=== PATIENT | female | born 1985 | race American Indian/Alaskan Native ===

== ENCOUNTER 2016-04-18 05:17 | Emergency (ER) | payer MEDICAID, OTHER ==
[2016-04-18 05:25] VITALS: BP 128/85
[2016-04-18 05:50] LABS: Basophils % (Auto) 0.3 % (0.0-1.8); Eosinophils % (Auto) 1.9 % (0.0-4.3); Hematocrit 34.7 % (30.3-42.9); Hemoglobin 11.4 gm/dl (10.1-14.3); Mean Corpuscular HGB Conc 33 % (30-34); Mean Corpuscular Hemoglobin 27 pg (28-32); Mean Corpuscular Volume 82 fl (79-97); Platelet Count 277 K/mm3 (140-440); Red Blood Count 4.24 M/mm3 (3.65-5.03); Red Cell Distribution Width 15.1 % (13.2-15.2); White Blood Count 6.6 K/mm3 (4.5-11.0)
[2016-04-18 06:05] LABS: Bacteria,Urine 1+ /HPF (Negative); Bilirubin,Urine NEG (Negative); Blood,Urine NEG (Negative); Ketones,Urine NEG (Negative); Leukocyte Esterase,Urine SM (Negative); Mucus,Urine FEW /HPF; Nitrite,Urine NEG (Negative); Protein,Urine <15 mg/dL mg/dL (Negative); Urobilinogen,Urine < 2.0 mg/dL (<2.0)
[2016-04-18 06:15] LABS: Alanine Aminotransferase 9 units/L (7-56); Albumin 4.2 g/dL (3.9-5); Albumin/Globulin Ratio 1.3 %; Alkaline Phosphatase 54 units/L (35-129); Bilirubin,Total 0.2 mg/dL (0.1-1.2); Blood Urea Nitrogen 12 mg/dL (7-17); Calcium 9.1 mg/dL (8.4-10.2); Carbon Dioxide 27 mmol/L (22-30); Chloride 98.3 mmol/L (98-107); Glucose 97 mg/dL (65-100); Lipase 34 units/L (13-60); Potassium 4.4 mmol/L (3.6-5.0); Sodium 137 mmol/L (137-145); Total Protein 7.5 g/dL (6.3-8.2)
[2016-04-18 06:27] LABS: Anion Gap 16 mmol/L
--- NOTE | 2016-04-19 05:49 | ED Elopement Review ---
ED Pt Elopement review - Results review Lab results: Laboratory Tests 04/18/16 04/18/16 04/18/16 05:42 05:42 05:45 WBC 6.6 RBC 4.24 Hgb 11.4 Hct 34.7 MCV 82 MCH 27 L MCHC 33 RDW 15.1 Plt Count 277 Lymph % (Auto) 53.9 H Piatt % (Auto) 8.6 H Eos % (Auto) 1.9 Baso % (Auto) 0.3 Lymph # 3.6 Piatt # 0.6 Eos # 0.1 Baso # 0.0 Seg Neutrophils % 35.3 L Seg Neutrophils # 2.3 Sodium 137 Potassium 4.4 Chloride 98.3 Carbon Dioxide 27 Anion Gap 16 BUN 12 Creatinine 0.6 L Estimated GFR > 60 BUN/Creatinine Ratio 20.00 Glucose 97 Calcium 9.1 Total Bilirubin 0.2 AST 17 ALT 9 Alkaline Phosphatase 54 Total Protein 7.5 Albumin 4.2 Albumin/Globulin Ratio 1.3 Lipase 34 Urine Color Yellow Urine Turbidity Slightly-cloudy Urine pH 5.0 Ur Specific Olar 1.019 Urine Protein <15 mg/dl Urine Glucose (UA) Neg Urine Ketones Neg Urine Blood Neg Urine Nitrite Neg Urine Bilirubin Neg Urine Urobilinogen < 2.0 Ur Leukocyte Esterase Sm Urine WBC (Auto) 16.0 H Urine RBC (Auto) 4.0 U Epithel Cells (Auto) 8.0 Urine Bacteria (Auto) 1+ Urine Mucus Few Urine HCG, Qual Negative - Call Back decision Pt Call Back Decision: No action required
== END 2016-04-18 05:43 | disposition left against medical advice (07) ==
LOC: ED 05:17
DX: R10.9 Unspecified abdominal pain (principal); E11.9 Type 2 diabetes mellitus without complications; Z72.0 Tobacco use; Z53.21 Procedure and treatment not carried out due to patient leaving prior to being seen by health care provider
CPT/HCPCS: 36415; 80053; 81001; 81025; 83690; 85025

== ENCOUNTER 2017-05-04 17:14 | Emergency (ER) | payer SELFPAY ==
[2017-05-04 17:39] VITALS: BP 108/50
[2017-05-04 18:12] LABS: Basophils % (Auto) 0.5 % (0.0-1.8); Eosinophils # (Auto) 0.1 K/mm3 (0.0-0.4); Hematocrit 35.7 % (30.3-42.9); Hemoglobin 12.1 gm/dl (10.1-14.3); Lymphocytes # (Auto) 2.8 K/mm3 (1.2-5.4); Lymphocytes % (Auto) 38.3 % (13.4-35.0); Mean Corpuscular HGB Conc 34 % (30-34); Mean Corpuscular Hemoglobin 28 pg (28-32); Mean Corpuscular Volume 83 fl (79-97); Monocytes # (Auto) 0.5 K/mm3 (0.0-0.8); Monocytes % (Auto) 7.3 % (0.0-7.3); Platelet Count 285 K/mm3 (140-440); Red Cell Distribution Width 15.8 % (13.2-15.2)
[2017-05-04 18:35] LABS: Alanine Aminotransferase 5 units/L (7-56); Albumin 4.1 g/dL (3.9-5); BUN/Creatinine Ratio 13; Blood Urea Nitrogen 8 mg/dL (7-17); Hemolysis Index 3
[2017-05-04 19:37] LABS: Bacteria,Urine 2+ /HPF (Negative); Bilirubin,Urine NEG (Negative); Blood,Urine NEG (Negative); Color,Urine Yellow (Yellow); Mucus,Urine FEW /HPF; Nitrite,Urine NEG (Negative); Protein,Urine <15 mg/dL mg/dL (Negative); Urobilinogen,Urine < 2.0 mg/dL (<2.0)
== END 2017-05-04 20:20 | disposition left against medical advice (07) ==
LOC: ED 17:14
DX: K64.9 Unspecified hemorrhoids (principal); R10.2 Pelvic and perineal pain; Z53.21 Procedure and treatment not carried out due to patient leaving prior to being seen by health care provider
CPT/HCPCS: 36415; 80053; 81001; 84702; 85025

== ENCOUNTER 2018-06-16 17:13 | Emergency (ER) | payer OTHER, MEDICARE ==
[2018-06-16] MEDS ORDERED: TYLENOL PO ONE ×2 (18:41→20:37)
[2018-06-16] MEDS ORDERED: NACL 0.9% 1000 ML 1,000 ML IV ONE ×2 (18:42→20:53)
[2018-06-16 19:35] LABS: Bacteria,Urine 1+ /HPF (Negative); Bilirubin,Urine NEG (Negative); Blood,Urine MOD (Negative); Color,Urine Yellow (Yellow); Mucus,Urine 2+ /HPF; Urobilinogen,Urine < 2.0 mg/dL (<2.0)
[2018-06-16 19:41] LABS: Hematocrit 27.9 % (30.3-42.9); Hemoglobin 9.2 gm/dl (10.1-14.3); Mean Corpuscular HGB Conc 33 % (30-34); Mean Corpuscular Volume 83 fl (79-97); Red Blood Count 3.37 M/mm3 (3.65-5.03); Red Cell Distribution Width 15.7 % (13.2-15.2)
[2018-06-16 19:58] LABS: INR 13.45 (0.87-1.13)
[2018-06-16] MEDS ORDERED: TAMIFLU PO STA (20:37)
--- NOTE | 2018-06-16 20:41 | Emergency Department Report ---
ED Fever HPI - General Chief Complaint: Chest Pain Stated Complaint: CHEST PAIN/BODY PAIN Time Seen by Provider: 06/16/18 19:12 - History of Present Illness Initial Comments: Ms. Castillo is a healthy 33 yo female without significant past medical history who presents with headache, fever, chills, body aches, dry cough since yester day. Sent from Urgent Care with heart rate 145 bpm. Did not receive flu vaccine. No tobacco use. Works in [employer]. 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 No known sick contacts. No previous hx of pneumonia. Timing/Duration: yesterday Fever Severity/Quality: subjective Fever Therapy EXHIBIT ELECTRICIAN: none Associated Symptoms: cough, headache, muscle aches ED Review of Systems ROS: Stated complaint: CHEST PAIN/BODY PAIN Other details as noted in HPI Comment: All other systems reviewed and negative Constitutional: fever, malaise Respiratory: cough Neurological: headache ED Past Medical Hx - Past Medical History Previous Medical History?: Yes Hx Hypertension: No Hx Heart Attack/AMI: No Hx Congestive Heart Failure: No Hx Diabetes: Yes (since last year) Hx Deep Vein Thrombosis: No Hx Liver Disease: No Hx Renal Disease: No Hx Sickle Cell Disease: No Hx Seizures: No Hx Asthma: No Hx COPD: No Hx HIV: No Additional medical history: Ectopic - Surgical History Past Surgical History?: No - Social History Smoking Status: Current Every Day Smoker Substance Use Type: Alcohol, Marijuana - Medications Home Medications: Home Medications Medication Instructions Recorded Confirmed Last Taken Type Cephalexin [Keflex] 500 mg PO QID 7 Days #28 capsule 06/16/18 Unknown Rx Oseltamivir [Tamiflu] 75 mg PO BID 5 Days #10 cap 06/16/18 Unknown Rx ED Physical Exam - General Limitations: No Limitations General appearance: alert, in no apparent distress, other (frequent cough) - Head Head exam: Present: atraumatic, normocephalic - Eye Eye exam: Present: normal appearance - ENT ENT exam: Present: mucous membranes moist - Neck Neck exam: Present: normal inspection, full ROM - Respiratory Respiratory exam: Present: normal lung sounds bilaterally. Absent: respiratory distress, wheezes, rales, rhonchi - Cardiovascular Cardiovascular Exam: Present: regular rate, normal rhythm. Absent: systolic murmur, diastolic murmur, rubs, gallop - GI/Abdominal GI/Abdominal exam: Present: soft, normal bowel sounds. Absent: distended, tenderness, guarding, rebound - Extremities Exam Extremities exam: Present: normal inspection - Back Exam Back exam: Present: normal inspection - Neurological Exam Neurological exam: Present: alert, oriented X3 - Psychiatric Psychiatric exam: Present: normal affect, normal mood - Skin Skin exam: Present: warm, dry, intact, normal color. Absent: rash ED Course Vital Signs 06/16/18 06/16/18 06/16/18 17:37 18:41 19:35 Temperature 102.9 F H 101.8 F H Pulse Rate 136 H 130 H Respiratory 20 24 Rate Blood Pressure 99/78 147/91 Blood Pressure 138/82 [Left] O2 Sat by Pulse 98 96 98 Oximetry 06/16/18 06/16/18 06/16/18 20:00 20:30 21:00 Temperature 99.5 F Pulse Rate 117 H 111 H Respiratory 28 H 16 Rate Blood Pressure 144/86 137/88 Blood Pressure [Left] O2 Sat by Pulse 95 Oximetry 06/16/18 22:00 Temperature Pulse Rate 107 H Respiratory 24 Rate Blood Pressure 128/81 Blood Pressure [Left] O2 Sat by Pulse 98 Oximetry ED Medical Decision Making - Lab Data Result diagrams: 06/16/18 18:23 06/16/18 18:23 Laboratory Tests 06/16/18 06/16/18 06/16/18 18:23 18:23 18:23 WBC 4.7 RBC 3.37 L Hgb 9.2 L Hct 27.9 L MCV 83 MCH 27 L MCHC 33 RDW 15.7 H Plt Count 88 L Add Manual Diff Complete Total Counted 100 Seg Neuts % (Manual) 87.0 H Band Neutrophils % 1.0 Lymphocytes % (Manual) 7.0 L Reactive Lymphs % (Man) 0 Monocytes % (Manual) 5.0 Eosinophils % (Manual) 0 Basophils % (Manual) 0 Metamyelocytes % 0 Myelocytes % 0 Promyelocytes % 0 Blast Cells % 0 Nucleated RBC % Not Reportable Seg Neutrophils # Man 4.1 Band Neutrophils # 0.0 Lymphocytes # (Manual) 0.3 L Abs React Lymphs (Man) 0.0 Monocytes # (Manual) 0.2 Eosinophils # (Manual) 0.0 Basophils # (Manual) 0.0 Metamyelocytes # 0.0 Myelocytes # 0.0 Promyelocytes # 0.0 Blast Cells # 0.0 WBC Morphology Not Reportable Hypersegmented Neuts Not Reportable Hyposegmented Neuts Not Reportable Hypogranular Neuts Not Reportable Smudge Cells Not Reportable Toxic Granulation Not Reportable Toxic Vacuolation Not Reportable Dohle Bodies Not Reportable Pelger-Huet Anomaly Not Reportable Jacqueline Rods Not Reportable Platelet Estimate Appears decreased Clumped Platelets Not Reportable Plt Clumps, EDTA Not Reportable Large Platelets Not Reportable Giant Platelets Not Reportable Platelet Satelliting Not Reportable Plt Morphology Comment Not Reportable RBC Morphology Not Reportable Dimorphic RBCs Not Reportable Polychromasia Not Reportable Hypochromasia 2+ Poikilocytosis Few Anisocytosis 1+ Microcytosis Not Reportable Macrocytosis Not Reportable Spherocytes Not Reportable Pappenheimer Bodies Not Reportable Sickle Cells Not Reportable Target Cells Not Reportable Tear Drop Cells Not Reportable Ovalocytes Not Reportable Helmet Cells Not Reportable Goodrich-Shambaugh Bodies Not Reportable [place] Rings Not Reportable [place]la Cells Not Reportable Bite Cells Not Reportable Crenated Cell Not Reportable Elliptocytes Not Reportable Acanthocytes (Spur) Not Reportable Rouleaux Not Reportable Hemoglobin C Crystals Not Reportable Schistocytes Not Reportable Malaria parasites Not Reportable Jose Bodies Not Reportable Hem Pathologist Commnt No PT 110.4 H INR 13.45 H* VBG pH Sodium 137 Potassium 3.9 Chloride 99.8 Carbon Dioxide 14 L Anion Gap 27 BUN 7 Creatinine 0.7 Estimated GFR > 60 BUN/Creatinine Ratio 10 Glucose 147 H Lactic Acid Calcium 9.7 Total Bilirubin 0.40 AST 19 ALT 10 Alkaline Phosphatase 74 Total Protein 8.9 H Albumin 4.7 Albumin/Globulin Ratio 1.1 HCG, Qual Urine Color Urine Turbidity Urine pH Ur Specific Forrest Urine Protein Urine Glucose (UA) Urine Ketones Urine Blood Urine Nitrite Urine Bilirubin Urine Urobilinogen Ur Leukocyte Esterase Urine WBC (Auto) Urine RBC (Auto) U Epithel Cells (Auto) Urine Bacteria (Auto) Urine Mucus Urine Yeast (Budding) 06/16/18 06/16/18 06/16/18 18:23 18:23 18:27 WBC RBC Hgb Hct MCV MCH MCHC RDW Plt Count Add Manual Diff Total Counted Seg Neuts % (Manual) Band Neutrophils % Lymphocytes % (Manual) Reactive Lymphs % (Man) Monocytes % (Manual) Eosinophils % (Manual) Basophils % (Manual) Metamyelocytes % Myelocytes % Promyelocytes % Blast Cells % Nucleated RBC % Seg Neutrophils # Man Band Neutrophils # Lymphocytes # (Manual) Abs React Lymphs (Man) Monocytes # (Manual) Eosinophils # (Manual) Basophils # (Manual) Metamyelocytes # Myelocytes # Promyelocytes # Blast Cells # WBC Morphology Hypersegmented Neuts Hyposegmented Neuts Hypogranular Neuts Smudge Cells Toxic Granulation Toxic Vacuolation Dohle Bodies Pelger-Huet Anomaly Jacqueline Rods Platelet Estimate Clumped Platelets Plt Clumps, EDTA Large Platelets Giant Platelets Platelet Satelliting Plt Morphology Comment RBC Morphology Dimorphic RBCs Polychromasia Hypochromasia Poikilocytosis Anisocytosis Microcytosis Macrocytosis Spherocytes Pappenheimer Bodies Sickle Cells Target Cells Tear Drop Cells Ovalocytes Helmet Cells Goodrich-Shambaugh Bodies [place] Rings Layla Cells Bite Cells Crenated Cell Elliptocytes Acanthocytes (Spur) Rouleaux Hemoglobin C Crystals Schistocytes Malaria parasites Jose Bodies Hem Pathologist Commnt PT INR VBG pH 7.447 H Sodium Potassium Chloride Carbon Dioxide Anion Gap BUN Creatinine Estimated GFR BUN/Creatinine Ratio Glucose Lactic Acid 1.70 Calcium Total Bilirubin AST ALT Alkaline Phosphatase Total Protein Albumin Albumin/Globulin Ratio HCG, Qual Urine Color Yellow Urine Turbidity Cloudy Urine pH 5.0 Ur Specific Forrest 1.016 Urine Protein 100 mg/dl Urine Glucose (UA) Neg Urine Ketones 20 Urine Blood Mod Urine Nitrite Neg Urine Bilirubin Neg Urine Urobilinogen < 2.0 Ur Leukocyte Esterase Mod Urine WBC (Auto) 22.0 H Urine RBC (Auto) 4.0 U Epithel Cells (Auto) 44.0 H Urine Bacteria (Auto) 1+ Urine Mucus 2+ Urine Yeast (Budding) Few 06/16/18 06/16/18 20:50 20:50 WBC RBC Hgb Hct MCV MCH MCHC RDW Plt Count Add Manual Diff Total Counted Seg Neuts % (Manual) Band Neutrophils % Lymphocytes % (Manual) Reactive Lymphs % (Man) Monocytes % (Manual) Eosinophils % (Manual) Basophils % (Manual) Metamyelocytes % Myelocytes % Promyelocytes % Blast Cells % Nucleated RBC % Seg Neutrophils # Man Band Neutrophils # Lymphocytes # (Manual) Abs React Lymphs (Man) Monocytes # (Manual) Eosinophils # (Manual) Basophils # (Manual) Metamyelocytes # Myelocytes # Promyelocytes # Blast Cells # WBC Morphology Hypersegmented Neuts Hyposegmented Neuts Hypogranular Neuts Smudge Cells Toxic Granulation Toxic Vacuolation Dohle Bodies Pelger-Huet Anomaly Jacqueline Rods Platelet Estimate Clumped Platelets Plt Clumps, EDTA Large Platelets Giant Platelets Platelet Satelliting Plt Morphology Comment RBC Morphology Dimorphic RBCs Polychromasia Hypochromasia Poikilocytosis Anisocytosis Microcytosis Macrocytosis Spherocytes Pappenheimer Bodies Sickle Cells Target Cells Tear Drop Cells Ovalocytes Helmet Cells Goodrich-Shambaugh Bodies [place] Rings [place] Cells Bite Cells Crenated Cell Elliptocytes Acanthocytes (Spur) Rouleaux Hemoglobin C Crystals Schistocytes Malaria parasites Jose Bodies Hem Pathologist Commnt PT 14.0 INR 1.02 VBG pH Sodium Potassium Chloride Carbon Dioxide Anion Gap BUN Creatinine Estimated GFR BUN/Creatinine Ratio Glucose Lactic Acid Calcium Total Bilirubin AST ALT Alkaline Phosphatase Total Protein Albumin Albumin/Globulin Ratio HCG, Qual Negative Urine Color Urine Turbidity Urine pH Ur Specific Forrest Urine Protein Urine Glucose (UA) Urine Ketones Urine Blood Urine Nitrite Urine Bilirubin Urine Urobilinogen Ur Leukocyte Esterase Urine WBC (Auto) Urine RBC (Auto) U Epithel Cells (Auto) Urine Bacteria (Auto) Urine Mucus Urine Yeast (Budding) - Radiology Data Radiology results: report reviewed Chest x-ray: No acute process according to radiology report - Medical Decision Making Upon arrival, code sepsis was initiated with appropriate institution of protocol by my colleague. Blood pressure was initially 99/78. Repeat blood pressure 142/78. I do suspect aberrant blood pressure reading. Clinical diagnosis infl uenza. Normal white blood cell count. Normal lactic acid. Chemistry notable for significant anion gap with metabolic acidosis suggestive of volume contraction. Mrs. Hammond received 2 L IV normal saline with improvement of heart rate. Prescribed Tamiflu. Also prescribed cephalexin. I do suspect urinalysis is contaminated. Critical care attestation.: If time is entered above; I have spent that time in minutes in the direct care of this critically ill patient, excluding procedure time. ED Disposition Clinical Impression: Influenza, Fever Disposition: [id number] TO HOME OR SELFCARE Is pt being admited?: No Does the pt Need Aspirin: No Condition: Stable Instructions: Influenza (ED) Prescriptions: Cephalexin [Keflex] 500 mg PO QID 7 Days #28 capsule Oseltamivir [Tamiflu] 75 mg PO BID 5 Days #10 cap Referrals: WILLI PIKE MD [Primary Care Provider] - 3-5 Days Forms: Work/School Release Form(ED)
[2018-06-16] MEDS ORDERED: IBUPROFEN PO ONE (20:53)
[2018-06-16 21:27] LABS: Basophils % (Manual) 0 % (0.0-1.8); Eosinophils % (Manual) 0 % (0.0-4.3); Total Cells Counted 100
--- NOTE | 2018-06-16 21:33 | XRay Report ---
PROCEDURE: CHEST 1 VIEW TECHNIQUE: Chest radiograph posteroanterior projection. CPT 12453 HISTORY: Possible sepsis COMPARISONS: None . FINDINGS: Heart: Normal. Mediastinum/Vessels: Normal. Lungs/Pleural space: Normal. Bony thorax: No acute osseous abnormality. IMPRESSION: Normal examination. This document is electronically signed by Martin Barroso MD., June 16 2018 09:31:29 PM ET
[2018-06-16 21:34] LABS: Anisocytosis 1+; Hypochromasia 2+; Platelet Estimate Appears Decreased; Poikilocytosis Few
[2018-06-16 21:35] LABS: Platelet Count 88 K/mm3 (140-440)
[2018-06-16 21:46] LABS: INR 1.02 (0.87-1.13)
[2018-06-16 22:34] LABS: Alanine Aminotransferase 10 units/L (7-56); Albumin 4.7 g/dL (3.9-5); BUN/Creatinine Ratio 10; Blood Urea Nitrogen 7 mg/dL (7-17); Calcium 9.7 mg/dL (8.4-10.2); Hemolysis Index 25
[2018-06-16] MEDS ORDERED: KEFLEX PO ONE (23:03)
[2018-06-17 00:20] VITALS: BP 138/90
== END 2018-06-17 00:22 | disposition home or self-care (01) ==
LOC: ED 17:13
DX: J11.1 Influenza due to unidentified influenza virus with other respiratory manifestations (principal); E11.9 Type 2 diabetes mellitus without complications; F17.200 Nicotine dependence, unspecified, uncomplicated; F12.10 Cannabis abuse, uncomplicated
CPT/HCPCS: 36415; 71045; 80053; 81001; 82140; 82805; 84703; 85007; 85025; 85610; 87040; 87086; 93005; 93010; 99285; J7030